=== PATIENT | male | born 1945 | race Caucasian/White ===

== ENCOUNTER 2018-07-23 15:20 | Day surgery (SDC) | payer MEDICARE ==
[~2018-07-23 15:20] MED LIST: AMOCLA875 PO; ATEN25 PO; Aspir 8181 MG PO; FISH1000 PO; FOLGARD TABLET1 EACH PO; GLUC500 PO; INSUASPI SC; INSULANPEN SC; LOSA25 PO; LOSA50 PO; METF500 PO; MULVITMIND PO; SIMV40 PO; Zofran Odt4 MG SL
--- NOTE | 2018-07-23 16:19 | NUR ---
07/23/18 1619 Giorgio Benavidez History, Chart, Medications and Allergies reviewed before start of procedure.MONITOR INTACT WITH CONTINUOUS PULSE OXIMETRY AND INTERMITTENT BP.3-LEAD EKG REVIEWED WITH PHYSICIAN PRIOR TO START OF PROCEDURE.O2 VIA N/C INTACT THROUGHOUT SEDATION/PROCEDURE. Patient confirms NPO status and agrees with scheduled surgery.See Anesthesia record.
--- NOTE | 2018-07-23 17:56 | NUR ---
1745- UP TO DRESS. GAIT STEADY. DENIES DIZZINESS. DENIES C/O. BREATHING RA. VSS. Discharge instructions reviewed with patient. Patient verbalizes understanding. Copy given to patient to take home.
== END 2018-07-23 22:33 | disposition home or self-care (01) ==
LOC: ORSCMMR 15:20
PROVIDERS: Internal Medicine Gastroenterology
PROC: 0DBK8ZX Excision of Ascending Colon, Via Natural or Artificial Opening Endoscopic, Diagnostic (ICD-10-PCS; principal; 2018-07-23 15:30)
PROC: 0DBM8ZX Excision of Descending Colon, Via Natural or Artificial Opening Endoscopic, Diagnostic (ICD-10-PCS; principal; 2018-07-23 15:30)
DX: Z12.11 Encounter for screening for malignant neoplasm of colon (principal); D12.2 Benign neoplasm of ascending colon; D12.4 Benign neoplasm of descending colon; K57.30 Diverticulosis of large intestine without perforation or abscess without bleeding; E11.9 Type 2 diabetes mellitus without complications; I10 Essential (primary) hypertension; G47.33 Obstructive sleep apnea (adult) (pediatric); C91.10 Chronic lymphocytic leukemia of B-cell type not having achieved remission; E66.9 Obesity, unspecified; Z68.42 Body mass index [BMI] 45.0-49.9, adult; Z79.4 Long term (current) use of insulin; Z79.899 Other long term (current) drug therapy
CPT/HCPCS: 82947; 88305; J7120

== ENCOUNTER → 2020-10-04 | Outpatient (CLI) | payer MEDICARE | END | disposition home or self-care (01) | LOC: LAB SHORT 12:37 → PLD 12:37 | DX: D22.5 Melanocytic nevi of trunk (principal) | CPT/HCPCS: 88305 ==

== ENCOUNTER → 2021-10-03 | Outpatient (CLI) | payer MEDICARE | END | disposition home or self-care (01) | LOC: PLD 11:59 → LAB SHORT 11:59 | DX: D22.0 Melanocytic nevi of lip (principal); L57.0 Actinic keratosis | CPT/HCPCS: 88305 ==

== ENCOUNTER → 2022-09-25 | Outpatient (CLI) | payer MEDICARE | END | disposition home or self-care (01) | LOC: PLD 11:10 → LAB SHORT 11:10 | DX: D18.01 Hemangioma of skin and subcutaneous tissue (principal) | CPT/HCPCS: 88305 ==

== ENCOUNTER 2022-10-10 14:04 | Day surgery (SDC) | payer MEDICARE ==
[~2022-10-10] VITALS: Ht 182.9 cm; Wt 154.4 kg
[2022-10-10] MEDS ORDERED: INSULANI (14:44)
[2022-10-10] MEDS ORDERED: BUPROPION XL150 M1 PO (14:45)
[2022-10-10] MEDS ORDERED: JARDIANCE25 MG PO (14:45)
--- NOTE | 2022-10-10 14:55 | NUR ---
10/10/22 1455 Edwige Sage IN AT 1438 NICOLE IN AT 1440
== END 2022-10-10 16:15 | disposition home or self-care (01) ==
LOC: ORSCSDS 14:04
PROVIDERS: Ophthalmology
PROC: 08RJ3JZ Replacement of Right Lens with Synthetic Substitute, Percutaneous Approach (ICD-10-PCS; principal; 2022-10-10 15:30)
DX: E11.36 Type 2 diabetes mellitus with diabetic cataract (principal); H25.11 Age-related nuclear cataract, right eye; Z79.4 Long term (current) use of insulin; Z79.84 Long term (current) use of oral hypoglycemic drugs; H52.201 Unspecified astigmatism, right eye; E78.5 Hyperlipidemia, unspecified; G47.33 Obstructive sleep apnea (adult) (pediatric); J45.909 Unspecified asthma, uncomplicated; E66.01 Morbid (severe) obesity due to excess calories; Z68.42 Body mass index [BMI] 45.0-49.9, adult; Z79.899 Other long term (current) drug therapy
CPT/HCPCS: 82947; J2001; J2250; J3010; J3301; J7040; V2632

== ENCOUNTER 2022-10-17 13:34 | Day surgery (SDC) | payer MEDICARE ==
[~2022-10-17] VITALS: Ht 182.9 cm; Wt 152.9 kg
[~2022-10-17 13:34] MED LIST changes: +BUPROPION XL150 M1 PO; +INSULANI; +JARDIANCE25 MG PO
[2022-10-17] MEDS ORDERED: Naltrexone HCl50 MG PO (14:15)
--- NOTE | 2022-10-17 14:20 | NUR ---
10/17/22 1420 Federico Callahan CALL LIGHT WITHIN REACH. TETRACAINE IN AT 1414 AND PLEDGETT IN AT 1415 IN THE LEFT EYE
== END 2022-10-17 15:47 | disposition home or self-care (01) ==
LOC: ORSCSDS 13:34
PROVIDERS: Ophthalmology
PROC: 08RK3JZ Replacement of Left Lens with Synthetic Substitute, Percutaneous Approach (ICD-10-PCS; principal; 2022-10-17 15:00)
DX: H25.12 Age-related nuclear cataract, left eye (principal); H52.4 Presbyopia; I10 Essential (primary) hypertension; G47.33 Obstructive sleep apnea (adult) (pediatric); E11.9 Type 2 diabetes mellitus without complications; Z79.84 Long term (current) use of oral hypoglycemic drugs; Z79.899 Other long term (current) drug therapy; E66.01 Morbid (severe) obesity due to excess calories; Z68.42 Body mass index [BMI] 45.0-49.9, adult
CPT/HCPCS: 82947; J2001; J2250; J3010; J3300; J7040; V2632

== ENCOUNTER 2023-08-27 11:17 | Inpatient (IN) | payer OTHER, MEDICARE, MEDICAID ==
[~2023-08-27] VITALS: Ht 182.9 cm; Wt 143.1 kg
[~2023-08-27 11:17] MED LIST changes: -INSULANI; +INSULANI SC; +Naltrexone HCl50 MG PO
[2023-08-27 12:03] LABS: Bicarbonate Venous 30.7 mmol/L (24.0-30.0); pH Blood Venous 7.39 (7.34-7.37)
[2023-08-27 12:04] LABS: BASOPHILS ABSOLUTE AUTO 0.04 K/mm3 (0.00-0.23); BASOPHILS PERCENT AUTO 0 % (0-2); EOSINOPHILS ABSOLUTE AUTO 0.14 K/mm3 (0.00-0.68); EOSINOPHILS PERCENT AUTO 1 % (0-6); Hematocrit 46.4 % (37.0-53.0); Hemoglobin 14.4 g/dL (13.5-17.5); IMMATURE GRAN ABSOLUTE AUTO 0.08 K/mm3 (0.00-0.10); IMMATURE GRAN PERCENT AUTO 1 % (0-1); LYMPHOCYTES ABSOLUTE AUTO 1.11 K/mm3 (0.84-5.20); LYMPHOCYTES PERCENT AUTO 11 % (21-46); MONOCYTES ABSOLUTE AUTO 0.99 K/mm3 (0.16-1.47); MONOCYTES PERCENT AUTO 10 % (4-13); Mean Corpuscular Volume 90 fL (80-100); NEUTROPHILS ABSOLUTE AUTO 8.07 K/mm3 (1.96-9.15); NEUTROPHILS PERCENT AUTO 77 % (41-73); Platelet Count 98 K/mm3 (150-400); RDW Coefficient Variation 16.6 % (11.7-14.2); RDW Standard Deviation 54.3 fL (35.1-46.3); Red Blood Cell Count 5.15 M/mm3 (4.30-5.90); White Blood Cell Count 10.43 K/mm3 (4.00-11.30)
[2023-08-27 12:06] LABS: International Normalized Ratio 1.11; Prothrombin Time Results 11.6 Sec (9.7-11.5)
[2023-08-27 12:16] LABS: Albumin/Globulin Ratio 0.9 (0.8-1.8); Bilirubin, Direct 0.1 mg/dL (0.0-0.3); Bilirubin, Indirect 0.6 mg/dL (0.1-0.7); Bilirubin, Total 0.7 mg/dL (0.1-1.0); Bun/Creatinine Ratio 30.6 (12.0-20.0); Calcium, Blood 9.1 mg/dL (8.5-10.1); Creatinine, Blood 0.69 mg/dL (0.60-1.20); Globulin, Blood 3.4 g/dL (2.2-4.0); Magnesium, Blood 1.8 mg/dL (1.6-2.4); Phosphorus, Blood 2.9 mg/dL (2.5-4.9); Potassium, Blood 4.7 mmol/L (3.5-5.5); Total Protein, Blood 6.4 g/dL (6.4-8.2)
[2023-08-27] MEDS ORDERED: Furosemide 10 MG/ML 4ML Vial IV ONE (12:40)
[2023-08-27] MEDS ORDERED: Metoprolol Tartrate 1 MG/ML 5 ML VIAL IV ONE (13:05)
[2023-08-27] MEDS ORDERED: Acetaminophen 325 MG TABLET PO PRN (13:50)
[2023-08-27] MEDS ORDERED: FLU VACC QS2023-24(6MOS UP)/PF 60 MCG/0.5 ML SYRINGE IM SCH (13:55)
[2023-08-27] MEDS ORDERED: Metoprolol Tartrate 1 MG/ML 5 ML VIAL IV PRN (13:55)
[2023-08-27 13:59] LABS: Influenza A, PCR NEGATIVE (NEGATIVE); Influenza B, PCR NEGATIVE (NEGATIVE); Resp Syncytial Virus, PCR NEGATIVE (NEGATIVE); SARS-Cov-2 (COVID-19) PCR, MMC NEGATIVE (NEGATIVE)
[2023-08-27] MEDS ORDERED: Enoxaparin 40 MG/0.4 ML SYR SC SCH (15:00)
[2023-08-27 16:11] LABS: Automated BF RBC Count 0.049 M/mm3 (0-0); Automated BF WBC Count 0.446 K/mm3 (0-999)
[2023-08-27 16:24] VITALS: BP 152/67
[2023-08-27 16:26] LABS: Body Fluid WBC Count 446 /mm3 (0-999); RBC Count, Body Fluid 49000 /mm3 (0-0)
[2023-08-27] MEDS ORDERED: Insulin Regular 100 UNIT/ML 10ML Vial SC SCH (16:30)
[2023-08-27 16:34] LABS: Albumin, Body Fluid 1.7 g/dL; Glucose, Body Fluid 303 mg/dL; Lactate Dehydrogenase, Body Fl 167 U/L; Protein, Body Fluid 2.5 g/dL
[2023-08-27 17:23] LABS: Total Cell Count, Body Fluid 100
[2023-08-27 17:26] LABS: Appearance, Body Fluid Cloudy (Clear); Color, Body Fluid Red (None-Yellow)
--- NOTE | 2023-08-27 17:55 | NUR ---
SHIFT SUMMARY PT ALERT AND ORIENTED. BP STABLE. HR AFIB 120'S. O2 SATS HAVE BEEN ABOVE 90% ON 4L NC. PT DENIES ANY PAIN. PT ABLE TO TOLERATE WALKING TO THE BATHROOM WITH SBA. PT DID REPORT SOB WITH AMBULATING. PT DOES NOT TOLERATE LAYING FLAT. PT SITTING UP EATING DINNER IN BED. WILL CONTINUE TO MONITOR AND REPORT TO ONCOMING RN
[2023-08-27] MEDS ORDERED: Furosemide 10 MG/ML 4ML Vial IV SCH (18:00)
[2023-08-27 19:25] VITALS: BP 128/91
--- NOTE | 2023-08-27 20:55 | NUR ---
ASSUMPTION OF CARE: AFTER RECEIVING REPORT FROM BRANDON HAINES, THIS RN ASSUMED CARE AT APPROX 1915. DURING INITIAL ENCOUNTER, PATIENT ALERT, SITTING UP IN CHAIR WATCHING TV. IS ALERT AND ORIENTED X4. RECEPTIVE TO EDUCATION, ABLE TO COMMUNICATE NEEDS EFFECTIVELY. IS LUMBEE. TELEMETRY SHOWING SINUS TACH WITH PVCs AT 120. PER HUMAN SERVICE TECHNICIAN, PATIENT CONVERTED FROM AFIB TO SINUS TACH AT APPROX 1800. PO METOPROLOL ADMINISTERED PER EMAR. DENIES CHEST PAIN, PRESSURE. BP STABLE. IS ON 3L VIA NASAL CANNULA, SATs >90%. REPORTS MILD DYSPNEA WITH MOBILITY, EASES WITH REST. RESPIRATIONS EVEN, UNLABORED WHILE SITTING IN CHAIR. S/P THORACENTESIS PRIOR TO ARRIVAL TO UNIT. SITE LOCATED ON L SIDE, IS WN. BANDAID DRESSING IN PLACE. RT AT BEDSIDE THIS EVENING TO DISCUSS USE OF CPAP WHILE SLEEPING, PATIENT USES DEVICE AT BASELINE. RT TO SET UP DEVICE FOR PATIENT USE. PATIENT UP TO RESTROOM TO VOID FREQUENTLY. IS INDEPENDENT, DOES CALL APPROPRIATELY NEEDED FOR ASSISTANCE. CALL LIGHT IN REACH.
[2023-08-27] MEDS ORDERED: Metoprolol Tartrate 50 MG Tab PO SCH (21:00)
--- NOTE | 2023-08-27 22:24 | NUR ---
NURSE NOTIFY IN PLACE TO NOTIFY MD SARAH OF HOME DOSE OF LANTUS. THIS RN UNCLEAR IF DAY RN NOTIFIED MD SARAH OF DOSE WHILE COMPLETING MEDICATION RECORD. THIS RN NOTIFIED MD JUNIOR OF COMPLETE MEDICATION RECORD, INCLUDING DOSE OF LANTUS. THIS RN ALSO NOTIFIED MD OF RHYTHM CHANGE AT APPROX 1800 (SEE ASSUMPTION OF CARE NOTE). PATIENT SUSTAINING SINUS TACH 120s-130s WITH PVCs. MD AWARE OF INCREASED RATE. NO NEW ORDERS RECEIVED AT THIS TIME.
[2023-08-27 23:11] VITALS: BP 108/56
[2023-08-28] VITALS (8 sets, daily range): BP systolic 100–123; BP diastolic 55–90
[2023-08-28 04:05] LABS: BASOPHILS ABSOLUTE AUTO 0.04 K/mm3 (0.00-0.23); BASOPHILS PERCENT AUTO 0 % (0-2); EOSINOPHILS ABSOLUTE AUTO 0.22 K/mm3 (0.00-0.68); EOSINOPHILS PERCENT AUTO 2 % (0-6); Hematocrit 45.3 % (37.0-53.0); IMMATURE GRAN ABSOLUTE AUTO 0.05 K/mm3 (0.00-0.10); IMMATURE GRAN PERCENT AUTO 1 % (0-1); LYMPHOCYTES ABSOLUTE AUTO 1.29 K/mm3 (0.84-5.20); LYMPHOCYTES PERCENT AUTO 12 % (21-46); MONOCYTES ABSOLUTE AUTO 1.12 K/mm3 (0.16-1.47); MONOCYTES PERCENT AUTO 11 % (4-13); Mean Corpuscular HGB 27.7 pg (26.0-34.0); Mean Corpuscular HGB Conc 30.9 g/dL (31.5-36.5); Mean Corpuscular Volume 90 fL (80-100); NEUTROPHILS ABSOLUTE AUTO 7.93 K/mm3 (1.96-9.15); NEUTROPHILS PERCENT AUTO 74 % (41-73); Platelet Count 99 K/mm3 (150-400); RDW Coefficient Variation 16.7 % (11.7-14.2); RDW Standard Deviation 54.8 fL (35.1-46.3); Red Blood Cell Count 5.05 M/mm3 (4.30-5.90); White Blood Cell Count 10.65 K/mm3 (4.00-11.30)
[2023-08-28 04:37] LABS: Bun/Creatinine Ratio 29.9 (12.0-20.0); Calcium, Blood 8.7 mg/dL (8.5-10.1); Creatinine, Blood 0.67 mg/dL (0.60-1.20); Potassium, Blood 3.6 mmol/L (3.5-5.5); Total Protein, Blood 5.8 g/dL (6.4-8.2)
[2023-08-28 04:39] LABS: Mean Platelet Volume 13.5 fL (9.1-12.4)
--- NOTE | 2023-08-28 04:43 | NUR ---
SHIFT SUMMARY: NO ACUTE CHANGES SINCE ASSUMPTION OF CARE NOTE. TELEMETRY SHOWING SINUS TACH WITH PVCs, RATE 110s-120s. RATE INCREASE TO 130s WITH ACTIVITY. BP STABLE, SBP 100s-120s. MAP >65. IS ON 4L VIA NASAL CANNULA WHILE AWAKE, SATs >90%. EXPERIENCES EPISODES OF INCREASED SHORTNESS OF BREATH, ESPECIALLY WITH ACTIVITY OR LYING FLAT. CPAP USE WHILE SLEEPING. IS A STAND BY ASSIST TO RESTROOM FOR CORD, DEVICE MANAGEMENT. VOIDING. NO BM THIS SHIFT. CALL LIGHT IN REACH. WILL REPORT TO ONCOMING RN.
--- NOTE | 2023-08-28 08:10 | NUR ---
AM NOTE Pt alert, orineted x4; calm and cooperative with care; able to make needs known. Pt denies pain, chest pain/pressure, nasuea, dizziness and numb/tingling. Spo2 >90% on 4l o2 via nc; ls coarse, dim to bases; titrated down to 3l o2. Tele per telecom billing analyst not sinus/sinus tach; continues as afib; ekg preformed; MD reviewed. Abd distended, firm, +bt t/o. Edema noted to ble 4+, bue 2+ and abd non pitting. Other vss. No other acute changes noted. Will continue to monitor.
[2023-08-28] MEDS ORDERED: Empagliflozin 25 MG TAB PO SCH (09:00)
[2023-08-28] MEDS ORDERED: Naltrexone HCl 50 MG Tab PO SCH (09:00)
[2023-08-28] MEDS ORDERED: Atorvastatin 10 MG Tab PO SCH (09:00)
[2023-08-28] MEDS ORDERED: Potassium Chloride 20 MEQ TabCR PO SCH (09:00)
[2023-08-28] MEDS ORDERED: buPROPion HCL 150 MG TAB.SR.12H PO SCH (09:00)
[2023-08-28] MEDS ORDERED: Miconazole Nitrate 2% 85 GM PWD TOP SCH (09:00)
[2023-08-28] MEDS ORDERED: Losartan Potassium 50 MG Tab PO SCH (09:00)
[2023-08-28] MEDS ORDERED: BRUKINSA80 MG PO (11:43)
[2023-08-28] MEDS ORDERED: SYNTHROID25 M12 PO (11:44)
[2023-08-28] MEDS ORDERED: OZEMPIC0.25 MG/02 SC (11:45)
[2023-08-28] MEDS ORDERED: Azithromycin 500 MG in NS 250 ML IV SCH (12:00)
[2023-08-28] MEDS ORDERED: CefTRIAXone Sodium 1,000 MG in NS 50 ML IV SCH (12:00)
[2023-08-28] MEDS ORDERED: Heparin Sodium,Porcine/0.5 NS 500 ML IV SCH (14:05)
--- NOTE | 2023-08-28 16:46 | NUR ---
Shift Summary Tele: Aflutter per Airline Station Agent 120-130's notified this am after first dose of iv metoprolol did not effect hr; orders to continue to monitor. Discussed plans with MD this evening, plans to give 2nd dose of iv metoprolol at 6 hr odessa. Spo2 >90% on 3l o2 via nc, sob with ambulation, educated pt on wearing o2 while ambulating. Chair alarm in place, pt forgetful at times, sba to bathroom. Other vss. No other acute changes noted. Will continue to monitor.
[2023-08-28] MEDS ORDERED: Loperamide HCl 2 MG Cap PO PRN ×2 (20:45→21:15)
[2023-08-28] MEDS ORDERED: Lactobacil 2-S.Thermo-Bifido 1 1 Cap PO SCH (21:00)
[2023-08-28] MEDS ORDERED: Insulin Glargine-Yfgn 100 Unit/mL 3 ML SYR SC SCH (21:00)
[2023-08-28] MEDS ORDERED: Dose Adjust by Pharmacy XX STA (23:53)
[2023-08-29] VITALS (40 sets, daily range): BP systolic 90–154; BP diastolic 62–97
[2023-08-29 05:05] LABS: Hematocrit 44.9 % (37.0-53.0); Hemoglobin 13.8 g/dL (13.5-17.5); Mean Corpuscular HGB 27.7 pg (26.0-34.0); Mean Corpuscular HGB Conc 30.7 g/dL (31.5-36.5); Mean Corpuscular Volume 90 fL (80-100); Platelet Count 107 K/mm3 (150-400); RDW Coefficient Variation 16.5 % (11.7-14.2); RDW Standard Deviation 54.7 fL (35.1-46.3); Red Blood Cell Count 4.99 M/mm3 (4.30-5.90); White Blood Cell Count 10.48 K/mm3 (4.00-11.30)
[2023-08-29] MEDS ORDERED: Levothyroxine Sodium 0.025 MG Tab PO SCH (06:00)
[2023-08-29 06:18] LABS: BAND PERCENT MAN 2 % (0-8); BASOPHILS PERCENT MAN 0 % (0-2); EOSINOPHILS ABSOLUTE MAN 0.31 K/mm3 (0.00-0.68); EOSINOPHILS PERCENT MAN 3 % (0-6); LYMPHOCYTES % ATYPICAL MANUAL 1 % (0-0); LYMPHOCYTES ABSOLUTE MAN 1.88 K/mm3 (0.84-5.20); LYMPHOCYTES PERCENT MAN 17 % (21-46); METAMYELOCYTE PERCENT MAN 1 % (0-0); MONOCYTES ABSOLUTE MAN 1.25 K/mm3 (0.16-1.47); MONOCYTES PERCENT MAN 12 % (4-13); NEUTROPHILS ABSOLUTE MAN 6.91 K/mm3 (1.96-9.15); SEG NEUTROPHILS PERCENT MAN 64 % (41-73); TOTAL CELLS COUNTED 100
--- NOTE | 2023-08-29 06:18 | NUR ---
SHIFT SUMMARY PATIENT ALERT AND ORIENTED X4. STAND BY ASSIST FOR LINE MANAGEMENT. PATIENT WAS HAVING FREQUENT LOOSE STOOLS AT THE BEGINNING OF SHIFT, CONTACTED DR MARTINES TO NOTIFY HIM AND ASK IF THE PATIENT COULD HAVE IMMODIUM, DR MARTINES APPROVED OF THE ORDER. PATIENT CONTINUES ON 3 LITERS O2 VIA NC, DENIES SHORTNESS OF BREATH. VITAL SIGNS STABLE, HEART RATE CONTINUES IN THE 120'S. WILL CONTINUE TO MONITOR. CALL LIGHT WITHIN REACH.
[2023-08-29 06:53] LABS: Bun/Creatinine Ratio 22.4 (12.0-20.0); Calcium, Blood 8.5 mg/dL (8.5-10.1); Creatinine, Blood 0.67 mg/dL (0.60-1.20); Potassium, Blood 3.2 mmol/L (3.5-5.5)
[2023-08-29] MEDS ORDERED: Dose Adjust by Pharmacy XX STA (08:49)
[2023-08-29] MEDS ORDERED: Metoprolol Succinate 50 MG TABCR PO SCH (09:15)
--- NOTE | 2023-08-29 09:59 | NUR ---
AM NOTE: PATIENT ALERT AND ORIENTED X3-4. SLIGHTLY FORGETFUL AND UNABLE TO TELL ME DETAILS ABOUT HEALTH HISTORY OR HOME MEDICATIONS. SLIGHTLY HARD OF HEARING. ABLE TO MOVE ALL EXTREMITIES WNL. UP WITH SBA TO BATHROOM. DENIES OVERALL PAIN. PERRLA. TELE SHOWING AFLUTTER WITH HR 110-130'S. SBP 120'S. DENIES CHEST PAIN/PRESSURE/PALPITATIONS. ECHO COMPLETED THIS AM. DR. MELENDREZ AT BEDSIDE TO CONSULT PATIENT. POSSIBLE JEAN/CARDIOVERSION THIS AFTERNOON. ANESTHESIA CALLED BY PCU LAYOUT FORMER. 4+ EDEMA NOTED IN BLE WELL 3+ BUE. HEPARIN GTT INFUSING PER EMAR. ON 3L NASAL CANNULA SATING ABOVE 95%. LUNGS SOUNDING CLEAR AND DIM. PATIENT DENIES SOB AT REST IN RECLINER. VERY MILD SOB NOTED WHEN LAYING ON LEFT SIDE FOR ECHO. DENIES COUGH. CPAP ON STANDBY AT BEDSIDE. DENIES ABDOMINAL PAIN/NAUSEA. NPO. PATIENT COMPLAINS OF DIARRHEA OVERNIGHT, RELIEVED BY PO IMODIUM. PATIENT DENIES SEEING ANY BLOOD OR BLACK TARRY STOOLS WITHIN DIARRHEA. BOWEL TONES PRESENT IN ALL QUADRANTS. DENIES PAIN WITH ABDOMINAL PALPATION. RED/YEASTY SKIN NOTED IN ABDOMINAL FOLDS, CLEANED AND POWDER APPLIED. USING HAT TO MEASURE URINE. RED SPOTS NOTED TO BLE, PATIENT REPORTS THIS IS FROM ABX RASH. PURPLE TINGE NOTED TO BILATERAL HANDS AND FEET, PATIENT STATES THIS IS HIS NORMAL. PATIENT SITTING IN RECLINER AT THIS TIME WITH CHAIR ALARM, DENIES NEEDS. CALL LIGHT IN REACH.
--- NOTE | 2023-08-29 10:42 | NUR ---
PATIENT TO HEART CENTER AT THIS TIME.
[2023-08-29] MEDS ORDERED: NS 1,000 ML IV ONE (10:51)
[2023-08-29] MEDS ORDERED: propofoL 20 ML IV ONE (11:01)
[2023-08-29] MEDS ORDERED: Benzocaine Oral Spray 0.5ML UD ONE (11:06)
[2023-08-29] MEDS ORDERED: Midazolam HCl 1MG / ML 2ML Vial ONE (11:28)
[2023-08-29] MEDS ORDERED: Ketamine HCl 100 MG / ML 5ML Vial ONE (11:28)
[2023-08-29] MEDS ORDERED: Amiodarone HCl 50 MG / ML 3 ML Amp ONE (11:54)
--- NOTE | 2023-08-29 12:45 | NUR ---
PT DROWSY, BUT CONVERSING APPROPRIATELY; DENIES PAIN POST PROCEDURE. PT'S RHYTHM AIFB WITH RVR 140-150'S-DOES CONVERT TO SR WITH ECTOPY AT TIMES, VSS.
--- NOTE | 2023-08-29 13:20 | NUR ---
REPORT CALLED TO ZAKI NAYAK; ALL QUESTIONS ANSWERED. PT RETURNED TO ROOM VIA STRETCHER, CONDITION STABLE.
--- NOTE | 2023-08-29 14:04 | NUR ---
PATIENT RETURNS TO PCU 19 POST JEAN/CARDIOVERSION AT [facility]. POWERGLIDE PLACED AND AMIO GTT STARTED PER EMAR ORDERS. HEPARIN GTT CONTINUES TO INFUSE PER EMAR. PATIENT VERY SLEEPY, USED SLIDE SHEET TO TRANSFER. ABX STARTED. TELE SHOWING SR WITH PVC'S AND BBB, PATIENT BRIEFLY CONVERTED TO AFLUTTER IN THE 150'S AND THEN BACK INTO SR AT THIS TIME. SBP 100-110'S. HR 80'S IN SR. SATING MID 90'S ON 4L 02 NASAL CANNULA. PATIENT ABLE TO TAKE A FEW SIPS OF WATER SAFELY. WILL ADVANCE DIET ONCE MORE AWAKE AND ALERT. POST VITAL SIGNS IN PROGRESS. BED ALARM IN PLACE AND CALL LIGHT IN REACH.
--- NOTE | 2023-08-29 15:21 | NUR ---
THIS RN AT LUNCH. PATIENT HAD MULTIPLE RUNS OF SVT WITH POLYMORPHIC PVC'S MARK RN SPOKE WITH DR. MELENDREZ AND UPDATED ON TELEMETRY, PATIENT VITALS AND PATIENT SYMPTOMS. NO NEW ORDERS FOR MARK RN TO PLACE. PATIENT SYMPTOMATIC WITH SHORT RUNS OF SVT, CHEST PALPITATIONS, RACING HEART AND NAUSEA. PATIENT BP 100-110'S. HR 90'S. SEE SAVED STRIPS IN CHART FROM XIFIN. PATIENT SITTING IN RECLINER, STATES HE DOES NOT FEEL LIKE EATING AT THIS TIME. CALL LIGHT IN REACH. HEPARIN AND AMIO CONTINUE TO INFUSE PER EMAR. PATIENT REMAINS ON 4L O2 NASAL CANNULA.
--- NOTE | 2023-08-29 18:22 | NUR ---
SHIFT SUMMARY: DR. MELENDREZ BY TO ASSESS PATIENT. NO NEW ORDERS FOR THIS RN TO PLACE. PATIENT IN SR AT THIS TIME WITH PVC'S. HR 80-90'S. SBP 110'S. DENIES CHEST PAIN/PRESSURE/PALPITATIONS. PATIENT HAVING SHORT EPISODE OF AFIB WITH HR 150'S. AMIO GTT AND HEPARIN GTT CONTINUE TO INFUSE. PATIENT HAD X2 LOOSE BOWEL MOVEMENT THIS EVENING. PO IMODIUM GIVEN PER EMAR. STRICT I/O. PLAN FOR 08/30 0500 EKG. CALL LIGHT IN REACH. CHAIR ALARM IN PLACE. REMAINS ON 4L O2 NASAL CANNULA. CPAP ON STANDBY AT BEDSIDE.
[2023-08-29] MEDS ORDERED: Insulin Glargine-Yfgn 100 Unit/mL 3 ML SYR SC ONE (21:45)
[2023-08-30] VITALS (9 sets, daily range): BP systolic 94–121; BP diastolic 58–84
[2023-08-30 05:16] LABS: Hematocrit 42.6 % (37.0-53.0); Hemoglobin 13.4 g/dL (13.5-17.5); Mean Corpuscular HGB Conc 31.5 g/dL (31.5-36.5); Mean Corpuscular Volume 89 fL (80-100); Platelet Count 97 K/mm3 (150-400); RDW Coefficient Variation 16.7 % (11.7-14.2); RDW Standard Deviation 54.8 fL (35.1-46.3); Red Blood Cell Count 4.79 M/mm3 (4.30-5.90)
[2023-08-30] MEDS ORDERED: Dose Adjust by Pharmacy XX STA (05:29)
[2023-08-30 05:36] LABS: Bun/Creatinine Ratio 18.9 (12.0-20.0); Calcium, Blood 8.3 mg/dL (8.5-10.1); Creatinine, Blood 1.06 mg/dL (0.60-1.20); Potassium, Blood 3.7 mmol/L (3.5-5.5)
[2023-08-30 05:42] LABS: BASOPHILS ABSOLUTE AUTO 0.05 K/mm3 (0.00-0.23); BASOPHILS PERCENT AUTO 0 % (0-2); EOSINOPHILS PERCENT AUTO 1 % (0-6); IMMATURE GRAN ABSOLUTE AUTO 0.05 K/mm3 (0.00-0.10); IMMATURE GRAN PERCENT AUTO 0 % (0-1); LYMPHOCYTES ABSOLUTE AUTO 2.68 K/mm3 (0.84-5.20); LYMPHOCYTES PERCENT AUTO 24 % (21-46); MONOCYTES ABSOLUTE AUTO 1.09 K/mm3 (0.16-1.47); MONOCYTES PERCENT AUTO 10 % (4-13); NEUTROPHILS ABSOLUTE AUTO 7.24 K/mm3 (1.96-9.15); NEUTROPHILS PERCENT AUTO 65 % (41-73)
[2023-08-30 06:14] LABS: White Blood Cell Count 11.21 K/mm3 (4.00-11.30)
--- NOTE | 2023-08-30 06:30 | NUR ---
SHIFT SUMMARY PATIENT ALERT AND ORIENTED X4, STAND BY ASSIST TO THE RESTROOM FOR LINE MANAGEMENT. PATIENT IS ON 3-4 LITERS O2 VIA NASAL CANULA. PATIENT'S HS BLOOD SUGAR WAS 148 AND THE PATIENT'S BLOOD SUGAR DROPPED FROM 170'S THE NIGHT BEFORE TO 80 THE NEXT MORNING, AND THE PATIENT REPORTED HAVING A DECREASED APPETITE LATELY, THIS RN NOTIFIED DR MARTINES OF THE BLOOD SUGAR AND ASKED IF THE PATIENT SHOULD STILL RECEIVE A 50 UNIT DOSE OF [address] MARTINES SAID NOT TO GIVE 50 UNITS OF GLARGINE BUT TO GIVE 15 UNITS INSTEAD. BLOOD PRESSURE HAS BEEN STABLE, CONTINUES ON AMIODARONE AND HEPARIN DRIP. PATIENT'S HEART RATE HAS BEEN IN THE 80'S, PEAKING TO THE 140'S AT TIMES. WILL CONTINUE TO MONITOR. CALL LIGHT WITHIN REACH.
[2023-08-30] MEDS ORDERED: Spironolactone 25 MG Tab PO SCH (08:00)
[2023-08-30] MEDS ORDERED: Amiodarone HCl 200 MG Tab PO SCH ×2 (09:00→13:00)
[2023-08-30] MEDS ORDERED: Sacubitril/Valsartan 24 MG-26 MG Tab PO SCH (09:00)
[2023-08-30] MEDS ORDERED: Insulin Glargine-Yfgn 100 Unit/mL 3 ML SYR SC SCH (09:00)
--- NOTE | 2023-08-30 09:47 | NUR ---
AM NOTE: PATIENT ALERT AND ORIENTED X4. PERRLA. DENIES NUMBNESS/TINGLING. PATIENT STATES HE FEELS WEAK BUT OVERALL FEELING BETTER FROM WHEN HE FIRST GOT TO HOSPITAL. UP WITH SBA TO HELP MANAGE LINES AND CORDS. CHAIR AND BED ALARM IN USE. TELE SHOWING SR/ST WITH PVC'S 70-100'S WELL PATIENT HAVING INTERMIT EPISODES OF AFIB WITH HR 130-150'S. PATIENT NONSYMPTOMATIC THIS MORNING WITH AFIB EPISODE. SBP 110'S. PPP. 4+ EDEMA NOTED TO BLE. IV LASIX GIVEN. STRICT I/O. HEPARIN AND AMIO GTTS INFUSING PER EMAR. PATIENT DENIES CHEST PAIN/PRESSURE/PALPITATIONS. PPP. ON 4L O2 NASAL CANNULA THIS AM SATING ABOVE 90%. EVEN AND UNLABORED RESPIRATIONS AT REST. SOB WITH EXCERTION WHEN UP TO BATHROOM. LUNGS SOUNDING CLEAR IN UPPER LOBES AND DIM IN BASES. DENIES COUGH. BOWEL TONES PRESENT. PATIENT USING URINAL TO VOID. DENIES HAVING ANY LOOSE BOWEL MOVEMENTS DURING NOC SHIFT. PATIENT REPORTS HAVING POOR APPEATITE AND NOT EATING MUCH. DRINKING WATER AND EATING A SMALL AMOUNT OF OATMEAL THIS MORNING. ACHS BLOOD SUGAR CHECKS. NO SWALLOWING ISSUES NOTED. RED/YEAST NOTED IN ABDOMINAL/PANUS FOLDS. CLEANED WITH WASHCLOTH AND NEW POWDER APPLIED. PATIENT SITTING IN RECLINER THIS MORNING. THIS RN REINFORCED EDUCATION REGARDING USING CALL LIGHT TO PREVENT FALLS. THIS RN AT BEDSIDE FOR PROVIDER ROUNDING WITH DR. MELENDREZ. DENIES NEEDS AT THIS TIME. CALL LIGHT IN REACH. PATIENT WATCHING TV IN RECLINER.
[2023-08-30] MEDS ORDERED: Insulin Regular 100 UNIT/ML 10ML Vial SC SCH (11:30)
[2023-08-30 13:33] LABS: PCO2 Arterial 53.4 mmHg (35-45); PO2 Arterial 65.2 mmHg (80-100); pH Blood Arterial 7.39 (7.35-7.45)
[2023-08-30 14:23] LABS: Source, Urine Foley catheter
[2023-08-30 14:31] LABS: Appearance, Urine Hazy (Clear); Bilirubin, Urine Neg (Neg); Blood, Urine 5+ (Neg); Color, Urine Yellow (P-Yellow); Glucose Qualitative, Urine 4+ (Neg); Ketones, Urine Neg (Neg); Leukocyte Esterase, Urine Neg (Neg); Nitrite, Urine Neg (Neg); Protein, Urine 2+ (Neg); Specific Gravity, Urine 1.015 (1.003-1.022); Urobilinogen, Urine NORM (Normal)
[2023-08-30 15:15] LABS: White Blood Cells, Urine 0-2 /hpf (0-5)
[2023-08-30 15:16] LABS: Bacteria Rare /hpf; Squamous Epithelial Cells Rare /hpf (Few)
--- NOTE | 2023-08-30 15:37 | NUR ---
PATIENT UP TO BS, DESATED TO MID 80'S ON 4L O2. RESPIRATORY CALLED AND PATIENT SATS NOT RECOVERING ON REGULAR NASAL CANNULA. PATIENT SWITCHED TO CPAP, PATIENT NOT TOLERATING CPAP AND PULLING OFF FACE. HIGH FLOW NASAL CANNULA STARTED AT 15L AND PATIENT SATING 90-95%. RR 24-26. PATIENT SOB AND INCREASED WORK OF BREATHING. REMAINS IN SR DURING THIS TIME. DR. SMITH CALLED AND ORDERS FOR BIPAP, ABG, 1 VIEW CHEST XRAY, AND DIAZ CATH. ORDERS PLACED AND RESPIRATORY IN TO DRAW ABG. PATIENT MOVED TO BED, DIAZ PLACED. CHEST XRAY COMPLETED. PATIENT TITRATED TO 12L HIGH FLOW SATING 90-95%. DENIES SOB, RR REMAINS 24-26. STABLE BP AND IN SINUS RHYTHM. IMPROVED WORK OF BREATHING. UNABLE TO TOLERATE FACE MASK FROM CPAP OR BIPAP AT THIS TIME. DR. SMITH CALLED, THIS RN DISCUSSED ABG, CHEST XRAY, DIAZ CATH BEING PLACED AND PATIENT NOT TOLERATING CPAP/BIPAP. NO NEW ORDERS FOR THIS RN TO PLACE. PATIENT IN BED AT THIS TIME WITH BED ALARM AND CALL LIGHT. IMPROVED WORK OF BREATHING DENIES SOB. SITTING UPRIGHT, WATCHING TV. ON 12L HIGH FLOW NASAL CANNULA.
--- NOTE | 2023-08-30 18:03 | NUR ---
SHIFT SUMMARY: PATIENT REMAINS ON 12L HIGH FLOW NASAL CANNULA SATING 90-95%. IV LASIX GIVEN THIS EVENING. PATIENT DENIES SOB AT REST. SOB WITH ANY EXCERTION. TELE CONTINUES TO SHOW SR WITH INTERMIT RUNS OF AFIB IN THE 130'S. SBP 110-120'S. DENIES CHEST PAIN/PRESSURE/PALPITATIONS. CONTINUES TO HAVE POOR APPEATITE. STRICT I/O. DIAZ PLACEMENT PER DR. SMITH ORDERS. YELLOW URINE WITH DIAZ PLACEMENT THAT IS NOW BLOOD TINGED, RESEMBLING CRANBERRY JUICE. CARBONATION EQUIPMENT OPERATOR IN TO HAVE 2ND RN CHECK DIAZ CATH/URINE COLORING. PATIENT DENIES PAIN WITH DIAZ. HEPARIN GTT CONTINUES PER EMAR. PO AMIO PER ORDERS. PATIENT IN RECLINER AT THIS TIME EATING DINNER AND WATCHING TV. DENIES NEEDS. CHAIR ALARM IN PLACE.
--- NOTE | 2023-08-30 22:50 | NUR ---
ASSUMPTION OF CARE: PATIENT IS ALERT AND ORIENTED X 4, NO ACUTE CONCERNS. HEPARIN GTT INFUSING INTO RIGHT HAND WITH NO ISSUES. PATIETN WITH RECENT DIAZ, URINE IS WAQAS AT THIS TIME, DAY RN SEEN CHANGE AND PROVIDER AWARE. PATIENT HAD 1 EPISODE OF ASYMPTOMATIC SVT, 8 MINUTES,, PATIENT SELF CONVERTED, TO SR OCC PVC FHB. DAY HOSPITALIST HAS BEEN AWARE OF THESE EPISODES, ALONG WITH CARDIOLOGY, POSSIBLE HISTORY OF. PATIENT HAS NO ACUTE CONCERNS, CHAIR ALARM ON DUE TO LINE MANAGEMENT AND POTETIAL FOR FALLS. PATIENT EDUCATED AND AGREES TO CALL. SBP UNDER 100, HELD MEDCIATIONS DUE TO PARAMETERS, PLEASE SEE MAR.
[2023-08-31] VITALS (66 sets, daily range): BP systolic 73–132; BP diastolic 44–96
[2023-08-31 04:17] LABS: Hematocrit 44.3 % (37.0-53.0); Hemoglobin 14.1 g/dL (13.5-17.5); Mean Corpuscular HGB 27.8 pg (26.0-34.0); Mean Corpuscular HGB Conc 31.8 g/dL (31.5-36.5); Mean Corpuscular Volume 87 fL (80-100); Platelet Count 95 K/mm3 (150-400); RDW Coefficient Variation 16.4 % (11.7-14.2); RDW Standard Deviation 52.3 fL (35.1-46.3); Red Blood Cell Count 5.07 M/mm3 (4.30-5.90); White Blood Cell Count 15.03 K/mm3 (4.00-11.30)
[2023-08-31 04:46] LABS: Calcium, Blood 8.3 mg/dL (8.5-10.1); Creatinine, Blood 1.41 mg/dL (0.60-1.20); Potassium, Blood 3.9 mmol/L (3.5-5.5)
--- NOTE | 2023-08-31 05:15 | NUR ---
EOS/ ACUTE CHANGE. PATIENT HAD GONE BACK INTO A MORE CONTROLLED SVT WHICH WAS CONFIRMED WITH PARAEDUCATOR WHEN SHE WAS AT BEDSIDE. EKG CAPTURED, FOR THE THIRD TIME, HOWEVER, PATIENT SUSTAINED THIS RHYTHM WHICH WAS ASYMPTOMATIC, VSS, MINUS HIS CURRENT INCREASED O2 NEEDS OF 12L WHICH DID NOT CHANGE. FOR APPROXIMATELY 60 MINUTES, IN TOTALEKG OF AFTER CONVERSION WELL, PLEASE SEE EKG. FRANKOENRIQUEN EDUCATED ON THE ACUTE NEED FOR CPAP USE, WAS INFORMED WITH INTIAL CALL TO PARAEDUCATOR IAN SIMONS TO GIVE AMIO EARLY ALONG WITH METOPROLOL AFTER SHE REVIEWED EKG AND ACQUIRED VITALS. THIS RN GAVE MEDICATIONS AND MOVED PATIENT TO BED FOR BETTER ACUTE CARE, VERSUS THE RECLINER. PATIENT ALERT AND ORIENTED X 4 AND CHEST PAIN PRESSURE FREE DURING ENTIRE PROCESS. PATIENT DIAZ STILL DRAINING BLOOD BUT OCCASSIONALLY IS HAVING A LIGHTENING OF YELLOW AT TIMES. PATIENT'S HEPARIN STILL INFUSING AND THERAPUETIC WITH NO CHANGE. PATIENT DID BECOME NAUSEATED WITH CPAP, DID HAVE TO BE REMOVED THIS AM DUE TO ACITVE DRY HEAVING DURING CARDIOLOGY ROUNDING. SEE CONCERNS ABOVE DAY RN AWARE OF CHANGES.
[2023-08-31] MEDS ORDERED: Clarify Drug Order XX ONE (05:25)
[2023-08-31 06:21] LABS: BASOPHILS PERCENT MAN 0 % (0-2); EOSINOPHILS ABSOLUTE MAN 0.15 K/mm3 (0.00-0.68); EOSINOPHILS PERCENT MAN 1 % (0-6); LYMPHOCYTES % ATYPICAL MANUAL 1 % (0-0); LYMPHOCYTES ABSOLUTE MAN 2.85 K/mm3 (0.84-5.20); LYMPHOCYTES PERCENT MAN 18 % (21-46); MONOCYTES PERCENT MAN 22 % (4-13); NEUTROPHILS ABSOLUTE MAN 8.56 K/mm3 (1.96-9.15); OTHER CELL PERCENT MAN 1 % (0-0); SEG NEUTROPHILS PERCENT MAN 57 % (41-73); TOTAL CELLS COUNTED 100
[2023-08-31] MEDS ORDERED: Ondansetron HCl 2 MG / ML 2ML Vial IV ONE (06:45)
[2023-08-31] MEDS ORDERED: Ondansetron HCl 2 MG / ML 2ML Vial ONE (06:45)
[2023-08-31] MEDS ORDERED: Adenosine 3 MG/ML 2 ML Vial ONE ×2 (10:46→10:55)
[2023-08-31] MEDS ORDERED: Midazolam HCl 1MG / ML 2ML Vial ONE (10:59)
[2023-08-31] MEDS ORDERED: Adenosine 3 MG/ML 4ML Vial IV ONE ×2 (11:15)
[2023-08-31] MEDS ORDERED: Midazolam HCl 1MG / ML 2ML Vial IV ONE (11:15)
--- NOTE | 2023-08-31 12:14 | NUR ---
AM UPDATE: 814: PT ALERT AND ORIENTED X4, ABLE TO FOLLOW COMMANDS AND MAKE NEEDS KNOWN. BP STABLE. HR SR 70'S, AFEBRILE, SP02 85-88% ON 12L HIFLOW. PT TITRATED TO 15L HIFLOW, SP02 >90%. MD AND RT NOTIFIED. PT UNABLE TO TOLERATE CPAP AT THIS TIME. 1100: RECEIVED CALL FROM [employer] AT 0950, PT NOW IN SVT RHYTHM RATE 130'S. PT WITH HX OF SVT, ABLE TO SELF CONVERT IN PAST. PT MAINTAINED RATE FOR APPROX 45 MIN. CALL THEN PLACED TO CUSTOMER SUPPORT ASSISTANT FOR UPDATE. BP STABLE AT THIS TIME, PT MAINTING >90% ON 15L HIFLOW. DENIES CP/PRESSURE. CUSTOMER SUPPORT ASSISTANT AT BEDSIDE, ORDERS FOR ADENOSINE. OVERLOCK COLLAR SETTER, , AND THIS RN AT BEDSIDE. 12MG OF ADENOSINE ADMINISTERED, HR REMAINS SVT 130'S, ADDITIONAL 12MG ADENOSINE ORDERED AND ADMINISTERED, PT REMAINED SVT 130'S. CUSTOMER SUPPORT ASSISTANT ORDER FOR SYCHRONIZED CARDIOVERSION @1100. SHOCK DELIVERED, PT CONVERTED TO SR 60'S. PT ALERT AND ORIENTED AT THIS TIME, SP02 83-86% ON 15L HIFLOW. BP TRENDING DOWN, SEE CHARTING. ORDERS RECEIVED ICU XFER FOR LEVOPHED. REPORT GIVEN TO ARIANE Ragsdale RN. PT TRANSFERRED TO ICU 2 @1200. HOSPITALIST NOTIFIED.
--- NOTE | 2023-08-31 12:44 | NUR ---
PT TRANSFERED FROM PCU 19 TO ICU 2 WITH AT 1150, 2 RN'S ACCOMPANY. PT IS ORIENTED TO SELF. THINKS HE IS IN SURGERY PROCEDURE. ASKS "SO ARE WE JUST WAITING FOR ME TO ?" EDUCATED PT ON PLAN OF CARE BUT PT IS NOT RETAINING INFO. HYPOTENSIVE AND HYPOXIC ON ARRIVAL. RT PLACED PT ON AIRVO 60L FIO2 94%. LOW DOSE LEVOPHED STARTED PERIPHERALLY, R HAND IV PATENT AND DRAWS BLOOD EASILY. BLEACHER LARD WILL PLACE PICC LINE WHEN AVAILABLE. HEPARIN GTT RUNNING WELL.
--- NOTE | 2023-08-31 14:08 | NUR ---
Pt. is awake in bed. Pt was recently moved from PCU to ICU where I am visiting him. Pt. is pleasant. Facilitate a life review and consider matters of oli and belief. Pt. verbalized stories of his relocating to [place] 10 years ago. Listen with interest and empathy. Pt. didsplaed evidence of getting visibly tired so si improvement director did not let the visit go long. Prayed with Pt. Pt. verbalized gratitude for the spiritual care visit.
[2023-08-31] MEDS ORDERED: Bumetanide 0.25 MG/ML 10ML Vial IV ONE (15:00)
--- NOTE | 2023-08-31 17:50 | NUR ---
SUMMARY PT TRANSFERED FROM PCU TODAY. HYPOTENSIVE AND HYPOXIC. PLACED ON AIRVO ON ARRIVAL TO ICU AND STARTED ON LEVOPHED. TITRATING LEVOPHED SEE FLOWSHEET. THIS AFTERNOON SPO2 WAS SITTING 84-88% ON MAX SETTINGS, CALLED DR. DIAZ WHO ORDERED BUMEX. ALSO PLACED PT ON BIPAP 18/14 FIO2 100%. AFTER BIPAP SPO2 90% AND ABOVE. PT TAKING A BREAK FROM BIPAP NOW AND HAS BEEN MAKING PHONE CALLS TO NEIGHBORS UPDATING THEM. PT SEEMS TO BE RETAINING INFORMATION BETTER NOW. NO SIGN OF DISTRESS AT THE MOMENT.
--- NOTE | 2023-08-31 22:32 | NUR ---
ASSUMPTION OF CARE/ASSESSMENT: ASSUMED CARE OF PT AT 1900. PT SLEEPING IN BED BUT WAKES TO VERBAL STIMULI. PT ABLE TO ANSWER QUESTIONS APPROPRIATELY AND IS A&O X 4. PT CURRENTLY ON BIPAP WITH SETTINGS 18/, FIO2 100%. BREATH SOUNDS ARE DIMINISHED THROUGHOUT, SPO2 90<. PT SWITCHED OVER TO AIRVO FOR ORAL CARE AND WATER BREAKS; TOELRATING WELL BUT WHEN PT STARTS TO FALL ASLEEP, BIPAP NEEDS TO BE PUT ON AGAIN. SR ON MONITOR WITH HR 60'S, SBP 100-120'S WITH MAP 65<; LEVO INFUSING @ 4 MCG IN RH PIV THAT IS FLUSHING WELL. PT DENIES CHEST PAIN OR SOB AT THIS TIME. HYPERACTIVE BOWEL SOUNDS NOTED; TOLERATING PO INTAKE. BILATERAL LEGS EDEMATOUS. DIAZ IN PLACE AND DRAINING TO GRAVITY; XENIA URINE, OLIGURIA. HEPARIN GTT @ 15 UNITS/KG IN CATIA PG THAT FLUSHES WELL. BED LOWERED, CALL LIGHT IN REACH.
[2023-09-01] VITALS (65 sets, daily range): BP systolic 80–117; BP diastolic 45–86
[2023-09-01 04:32] LABS: Hematocrit 45.3 % (37.0-53.0); Hemoglobin 14.4 g/dL (13.5-17.5); Mean Corpuscular HGB Conc 31.8 g/dL (31.5-36.5); Mean Corpuscular Volume 88 fL (80-100); Platelet Count 102 K/mm3 (150-400); RDW Coefficient Variation 16.3 % (11.7-14.2); Red Blood Cell Count 5.15 M/mm3 (4.30-5.90); White Blood Cell Count 16.36 K/mm3 (4.00-11.30)
[2023-09-01 04:45] LABS: Anion Gap 5 mmol/L (6-16); Blood Urea Nitrogen 40 mg/dL (8-24); Bun/Creatinine Ratio 22.9 (12.0-20.0); CO2, Blood 33 mmol/L (21-32); Calcium, Blood 8.2 mg/dL (8.5-10.1); Chloride, Blood 96 mmol/L (98-108); Creatinine, Blood 1.75 mg/dL (0.60-1.20); Glomerular Filtration Rate 39 (60-); Glucose, Blood 127 mg/dL (70-99); Magnesium, Blood 1.9 mg/dL (1.6-2.4); Phosphorus, Blood 6.8 mg/dL (2.5-4.9); Potassium, Blood 4.1 mmol/L (3.5-5.5); Sodium, Blood 134 mmol/L (136-145)
[2023-09-01] MEDS ORDERED: Clarify Drug Order XX ONE (05:05)
[2023-09-01 05:09] LABS: BAND PERCENT MAN 3 % (0-8); BASOPHILS PERCENT MAN 0 % (0-2); EOSINOPHILS ABSOLUTE MAN 0.32 K/mm3 (0.00-0.68); EOSINOPHILS PERCENT MAN 2 % (0-6); LYMPHOCYTES % ATYPICAL MANUAL 1 % (0-0); LYMPHOCYTES ABSOLUTE MAN 1.63 K/mm3 (0.84-5.20); LYMPHOCYTES PERCENT MAN 9 % (21-46); NEUTROPHILS ABSOLUTE MAN 11.28 K/mm3 (1.96-9.15); SEG NEUTROPHILS PERCENT MAN 66 % (41-73); TOTAL CELLS COUNTED 100
[2023-09-01 05:10] LABS: BLASTS PERCENT MAN 1 % (0-0); MONOCYTES ABSOLUTE MAN 2.94 K/mm3 (0.16-1.47); MONOCYTES PERCENT MAN 18 % (4-13)
--- NOTE | 2023-09-01 05:43 | NUR ---
SHIFT SUMMARY: PT ON BIPAP FOR MAJORITY OF THE NIGHT WITH BREIF BREAKS ON THE AIRVO FOR ORAL CARE AND DRINKS OF WATER. DURING THESE BREAKS PT DESATS QUICKLY AND TAKES LONGER PERIODS TO RECOVER. SPO2 MAINTAINING 88<. PT DENIES SOB AT THIS TIME. PT SR WITH HR 60'S AND SBP 110'S; LEVO ON SB AT THIS TIME. HEPARIN GTT @ 15 UNITS/KG. PT HAD 250 ML URINE OUT THIS SHIFT AND NO BOWEL MOVEMENT.
[2023-09-01] MEDS ORDERED: Bumetanide 0.25 MG/ML 10ML Vial IV ONE (07:35)
[2023-09-01] MEDS ORDERED: Mag Sulfate 1 GM/D5% 100ML 100 ML IV STA (08:22)
[2023-09-01] MEDS ORDERED: Spironolactone 25 MG Tab PO SCH (09:00)
[2023-09-01] MEDS ORDERED: Bumetanide 0.25 MG/ML 4ML ViaL IV SCH ×2 (09:00)
[2023-09-01] MEDS ORDERED: Metoprolol Succinate 25 MG TABCR PO SCH (09:00)
[2023-09-01] MEDS ORDERED: Amiodarone HCl 200 MG Tab PO SCH (09:00)
[2023-09-01] MEDS ORDERED: AcetaZOLAMIDE Sodium 500 MG Vial IV SCH (09:00)
[2023-09-01] MEDS ORDERED: Pantoprazole Sodium 40 MG Injection IV SCH (09:00)
[2023-09-01] MEDS ORDERED: Metolazone 5 MG Tab PO ONE (12:00)
[2023-09-01] MEDS ORDERED: NS 250 ML IV PRN (13:40)
[2023-09-01] MEDS ORDERED: Benzocaine Oral Spray 0.5ML UD MT PRN (15:25)
[2023-09-01 16:27] LABS: Albumin, Blood 2.8 g/dL (3.4-5.0); Anion Gap 4 mmol/L (6-16); Blood Urea Nitrogen 43 mg/dL (8-24); CO2, Blood 34 mmol/L (21-32); Calcium, Blood 7.6 mg/dL (8.5-10.1); Chloride, Blood 93 mmol/L (98-108); Creatinine, Blood 1.72 mg/dL (0.60-1.20); Glomerular Filtration Rate 40 (60-); Glucose, Blood 87 mg/dL (70-99); Phosphorus, Blood 6.5 mg/dL (2.5-4.9); Potassium, Blood 3.9 mmol/L (3.5-5.5); Sodium, Blood 131 mmol/L (136-145)
[2023-09-01] MEDS ORDERED: Calcium Acetate 667 MG Gel Cap PO SCH (18:00)
--- NOTE | 2023-09-01 18:45 | NUR ---
Shift summary. Pt remained in bed this shift. Pt has very high oxygen demand, Bipap Fi02 100%, Airvo settings maxed out. Pt tolerated short breaks from mask on airvo but sats remained in mid 80s during breaks, physician aware. Pulmonology consulted this am. No other acute events this shift. See chart for further details. Will report off to nightshift RN.
[2023-09-01] MEDS ORDERED: Atorvastatin 40 MG Tab PO SCH (21:00)
[2023-09-01] MEDS ORDERED: Phenol/Sodium Phenolate Oral Spray 180 ML MM PRN (23:25)
[2023-09-02] VITALS (41 sets, daily range): BP systolic 85–142; BP diastolic 48–106
[2023-09-02 03:42] LABS: Hematocrit 41.1 % (37.0-53.0); Hemoglobin 13.4 g/dL (13.5-17.5); Mean Corpuscular HGB Conc 32.6 g/dL (31.5-36.5); Mean Corpuscular Volume 86 fL (80-100); Platelet Count 96 K/mm3 (150-400); RDW Coefficient Variation 15.9 % (11.7-14.2); RDW Standard Deviation 49.9 fL (35.1-46.3); Red Blood Cell Count 4.78 M/mm3 (4.30-5.90); White Blood Cell Count 14.44 K/mm3 (4.00-11.30)
[2023-09-02 03:54] LABS: Albumin, Blood 2.7 g/dL (3.4-5.0); Anion Gap 5 mmol/L (6-16); Blood Urea Nitrogen 44 mg/dL (8-24); CO2, Blood 35 mmol/L (21-32); Chloride, Blood 94 mmol/L (98-108); Creatinine, Blood 1.57 mg/dL (0.60-1.20); Glomerular Filtration Rate 45 (60-); Glucose, Blood 82 mg/dL (70-99); Magnesium, Blood 1.8 mg/dL (1.6-2.4); Phosphorus, Blood 5.5 mg/dL (2.5-4.9); Sodium, Blood 134 mmol/L (136-145)
[2023-09-02] MEDS ORDERED: Clarify Drug Order XX ONE (04:30)
[2023-09-02 04:33] LABS: BAND PERCENT MAN 5 % (0-8); BASOPHILS PERCENT MAN 0 % (0-2); EOSINOPHILS ABSOLUTE MAN 0.43 K/mm3 (0.00-0.68); EOSINOPHILS PERCENT MAN 3 % (0-6); LYMPHOCYTES % ATYPICAL MANUAL 1 % (0-0); LYMPHOCYTES ABSOLUTE MAN 2.31 K/mm3 (0.84-5.20); LYMPHOCYTES PERCENT MAN 15 % (21-46); MONOCYTES ABSOLUTE MAN 1.29 K/mm3 (0.16-1.47); MONOCYTES PERCENT MAN 9 % (4-13); NEUTROPHILS ABSOLUTE MAN 10.39 K/mm3 (1.96-9.15); SEG NEUTROPHILS PERCENT MAN 67 % (41-73); TOTAL CELLS COUNTED 100
--- NOTE | 2023-09-02 06:06 | NUR ---
SHIFT SUMMARY: NO ACUTE CHANGES THROUGHOUT THE NIGHT; VSS THROUGHOUT THE SHIFT. PT TOLERATING BIPAP AND SMALL BREAKS WITH AIRVO; MAINTAINING SPO2 92<. SR WITH HR 60'S AND SBP 100'S, MAP 65<; LEVO HAS BEEN OFF FOR ENTIRE SHIFT. PT'S MENTAION AND MOOD IMPROVING AND PT REMAINS A&O X 4 AND IN A GOOD MOOD. PT HAD AROUND 2.5 L URINE OUTPUT THIS SHIFT. BED LOWERED, CALL LIGHT IN REACH.
[2023-09-02] MEDS ORDERED: Bumetanide 0.25 MG/ML 4ML ViaL IV SCH (09:00)
[2023-09-02] MEDS ORDERED: Metolazone 5 MG Tab PO ONE (13:00)
[2023-09-02] MEDS ORDERED: Rivaroxaban 10 MG Tab PO SCH (18:00)
--- NOTE | 2023-09-02 18:38 | NUR ---
Pt improved this shift, 02 demands decreasing, able to tolerate breaks from bipap mask on high flow NC and airvo. Up to recliner for several hours this shift, able to stand and ambulate with standby assist and walker. Heparin discontinued at 1500, xarelto started. No acute events this shift, see chart for further details. Will report off to nightshift RN.
--- NOTE | 2023-09-02 21:20 | NUR ---
ASSUMPTION OF CARE BEDSIDE SHIFT REPORT RECEIVED FROM DAYSHIFT RN. PT RESTING IN BED ALERT AND ORIENTED. PT ANSWERS QUESTIONS APPROPRIATELY, FOLLOWS COMMANDS AND IS ABLE TO MAKE NEEDS KNOWN. PT IS WEAK BUT MOVES ALL EXTREMITIES EQUALLY BILATERALLY. HR 60'S SINUS, MAP >65, PT DENIES CP OR PRESSURE. PT ON AIRVO 45LPM, 58%, OXYGEN SATURATION >92%, PT DENIES SOB, LUNG SOUNDS CLEAR DIMINISHED IN THE BASES. ABDOMEN SOFT AND ROUND, BOWEL TONES ACTIVE IN ALL FOUR QUADRANTS. DIAZ PATENT DRAINING TO GRAVITY. POWERGLIDE TO CATIA SL. BED IN LOWEST POSITION, CALL LIGHT WITHIN REACH, CARE CONTINUES.
--- NOTE | 2023-09-02 22:29 | NUR ---
PT TRANSFER REPORT GIVEN TO WIL HAINES IN PCU. PT TRANSPORTED TO PCU VIA ICU BED, TRANSFERRED TO PCU BED VIA SLIDER SHEET. PT REMAINED ALERT AND ORIENTED, VSS.
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
[2023-09-03] VITALS (9 sets, daily range): BP systolic 95–132; BP diastolic 52–86
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
[2023-09-03 05:35] LABS: Hematocrit 41.6 % (37.0-53.0); Hemoglobin 13.6 g/dL (13.5-17.5)
--- NOTE | 2023-09-03 05:47 | NUR ---
UPDATE THIS RN INTO TO CHECK ON PT; PT NOW A&O X4 - ABLE TO STATE NAME, AND PLACE, EVENT, DAY/TIME. PT UNABLE TO RECALL RECENT EPISODE OF CONFUSION. PT FOLLOWING COMMANDS. DENIES ANY CONCERNS OR NEEDS. PT DENIES CP/PRESSURE, SOB, DIZZINESS, PALPITATIONS, N/V. DENIES DOSHI, NUMBNESS OR TINGLING. PT CONVERSING AT THIS TIME IN COHERENT SENTENCES. VBG RESULTS PENDING. CALL LIGHT IN REACH, WILL CONTINUE TO MONITOR THIS SHIFT AND UPDATE PROVIDER NEEDED.
[2023-09-03 05:57] LABS: Base Excess Venous 15.6 mmol/L; Bicarbonate Venous 36.8 mmol/L (24.0-30.0); PCO2 Venous 52.8 mmHg (38-42); pH Blood Venous 7.48 (7.34-7.37)
[2023-09-03 06:02] LABS: Albumin, Blood 2.9 g/dL (3.4-5.0); Anion Gap 2 mmol/L (6-16); Blood Urea Nitrogen 39 mg/dL (8-24); Bun/Creatinine Ratio 28.5 (12.0-20.0); CO2, Blood 41 mmol/L (21-32); Chloride, Blood 90 mmol/L (98-108); Creatinine, Blood 1.37 mg/dL (0.60-1.20); Glomerular Filtration Rate 52 (60-); Glucose, Blood 165 mg/dL (70-99); Magnesium, Blood 1.9 mg/dL (1.6-2.4); Phosphorus, Blood 4.8 mg/dL (2.5-4.9); Potassium, Blood 3.5 mmol/L (3.5-5.5); Sodium, Blood 133 mmol/L (136-145)
--- NOTE | 2023-09-03 07:43 | NUR ---
SHIFT SUMMARY PT NOW A&O X4 AGAIN, PT DENIES REMEMBERING EVENT OF CONFUSION HOWEVER STATES HE "REMEMBERS A VERY VIVID DREAM OF BEING A DINOSAUR IN A [employer] AND IF I ANSWERED QUESTIONS OR THEY FOUND INFORMATION ABOUT ME, THEY WERE GOING TO KILL ME. 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 PT DENIES HAVING EPISODES OF "CONFUSION OF ANYTHING". VBG RESULTS IN; SEE RESULTS. HOSPITALIST NOTIFIED; NO NEW ORDERS AT THIS TIME. OTHERWISE PT VSS; SEE VITALS. PT IN SR WITH RATE IN 60's, ALTHOUGH ON TELE OCCASSIONAL TOUCH INTO THE 130'S HOWEVER APPEARS TO BE SINUS. PT ASYMPTOMATIC AT THIS TIME, AND WAS EATING A SNACK. PT WITH 4, 400 MLS UOP THIS SHIFT FROM DIAZ. TOLERATING PO INTAKE. NEW ORDERS FOR FLUID RESTRICTION PER - SEE NURSE NOTIFY. PT REMAINS ON AIRVO WITH NO CHANGE IN SETTINGS; SPO2 94 - 96%. PT CURRENTLY RESTING, WILL UPDATE ONCOMING RN
[2023-09-03] MEDS ORDERED: AcetaZOLAMIDE Sodium 500 MG Vial IV SCH (09:00)
[2023-09-03] MEDS ORDERED: Amiodarone HCl 200 MG Tab PO SCH (09:00)
--- NOTE | 2023-09-03 18:36 | NUR ---
SHIFT SUMMARY: PT HAS BEEN A&Ox4 T/OUT SHIFT, NO ACUTE EPISODES OF CONFUSION NOTED, PT IS ABLE TO MAKE NEEDS KNOWN. PT REPORTS IMPROVEMENT TO DYSPNEA, O2 HAS BEEN TITRATED DOWN TO 4 L/MIN VIA NC, O2 SATS MAINTAINED >90%. PT DENIES CP, SR ON MONITOR W/RATE 60s-70s. DIURETICS ADMINISTERED PER ORDERS, SEE EMAR, PT TOLERATING WELL WITH HIGH VOLUME OF URINE OUTPUT, DIAZ CATHETER PATENT AND DRAINING TO GRAVITY. FLUID RESTRICTION ENFORCED THIS SHIFT, PO INTAKE AT 1010 ML FOR THE DAY W/TOTAL RESTRICTION TO BE 1500 ML. PT UP TO BEDSIDE RECLINER THIS AM AND SPENDS MAJORITY OF THE DAY THERE. AT THIS TIME, PT IS RESTING IN CHAIR W/CALL LIGHT IN REACH. WILL CONTINUE TO MONITOR AND TREAT ACCORDINGLY UNTIL CHANGE OF SHIFT.
--- NOTE | 2023-09-03 21:27 | NUR ---
ASSUMPTION OF CARE AFTER RECEIVING REPORT FROM CHASITY RN, THIS RN ASSUMED CARE AT APPROX 1915. PATIENT ALERT, SITTING UP IN CHAIR READING ON PERSONAL TABLET. IS ALERT AND ORIENTED X4. COOPERATIVE WITH CARE, ABLE TO COMMUNICATE NEEDS EFFECTIVELY. TELEMETRY SHOWING SINUS 60s. BP SOFT, SBP 100s. MAP >65. DENIES CHEST PAIN, PRESSURE. IS ON 4L VIA NASAL CANNULA, SATs >90%. RESPIRATIONS EVEN, UNLABORED. DENIES SHORTNESS OF BREATH. RT AT BEDSIDE THIS EVENING TO SET UP CPAP DEVICE FOR BASELINE USE WHILE SLEEPING. DIAZ CATHETER IN PLACE, PATENT. DRAINING YELLOW URINE TO GRAVITY. PATIENT WORKED WITH PHYSICAL, OCCUPATIONAL THERAPY TODAY. IS A STAND BY ASSIST IN ROOM WITH PIPER GIVENS. IS ABLE TO REPOSITION HIMSELF INDEPENDENTLY. PATIENT DENIED SHOWER THIS EVENING. CALL LIGHT IN REACH.
[2023-09-04] VITALS (7 sets, daily range): BP systolic 110–124; BP diastolic 50–69
[2023-09-04 03:43] LABS: Hematocrit 43.5 % (37.0-53.0); Hemoglobin 14.1 g/dL (13.5-17.5)
[2023-09-04 04:43] LABS: Albumin, Blood 3.1 g/dL (3.4-5.0); Blood Urea Nitrogen 35 mg/dL (8-24); Bun/Creatinine Ratio 32.4 (12.0-20.0); Calcium, Blood 9.8 mg/dL (8.5-10.1); Chloride, Blood 87 mmol/L (98-108); Creatinine, Blood 1.08 mg/dL (0.60-1.20); Glomerular Filtration Rate 70 (60-); Glucose, Blood 133 mg/dL (70-99); Phosphorus, Blood 4.8 mg/dL (2.5-4.9); Potassium, Blood 3.3 mmol/L (3.5-5.5); Sodium, Blood 133 mmol/L (136-145)
[2023-09-04 04:50] LABS: Anion Gap Unable to Calculate mmol/L (6-16); CO2, Blood >45 mmol/L (21-32)
--- NOTE | 2023-09-04 05:02 | NUR ---
SHIFT SUMMARY: NO ACUTE CHANGES SINCE ASSUMPTION OF CARE NOTE. PATIENT SLEPT THROUGHOUT SHIFT, IS EASILY AROUSABLE TO VERBAL STIMULI. TELEMETRY SHOWING SINUS 70s. BP STABLE, SBP 100s-120s. MAP >65. DENIES CHEST PAIN, PRESSURE. REMAINS ON 4L VIA NASAL CANNULA, SATs 88-94%. DECLINED USE OF CPAP DEVICE WHILE SLEEPING. THIS RN PROVIDED EDUCATION REGARDING USE OF DEVICE, IS CONTINUING TO DECLINE. RESPIRATIONS EVEN, UNLABORED. THIS RN NOTIFIED BY LAB WITH CRITICAL CO2 >45. MD NOTIFIED. NO NEW ORDERS RECEIVED. SEE CRITICAL VALUE DOCUMENTATION. DIAZ CATHETER IN PLACE, DRAINING LARGE AMOUNT OF LIGHT YELLOW URINE TO GRAVITY. NO BM THIS SHIFT. IS A STAND BY ASSIST WITH MOBILITY, IS ABLE TO REPOSITION HIMSELF INDEPENDENTLY IN BED. CALL LIGHT IN REACH. WILL REPORT TO ONCOMING RN.
[2023-09-04] MEDS ORDERED: Potassium Chloride 40 MEQ in NS 250 ML IV ONE (05:35)
--- NOTE | 2023-09-04 07:57 | NUR ---
AM NOTE Pt alert, oriented x4, calm and cooperative with care. Able to make needs known. Pt up in recliner, sba in room. Pt denies pain, chest pain/pressure, sob, nausea, dizziness and numb/tingling. Pt tele sinus 60-70's, bp stable. Edema noted to ble 2-3+, trace edema noted in hands. Spo2 >90% on 4l o2 via nc, breathing even and unlabored, ls clear, bases dim with crackles noted. Abd distended, soft, nontender +bt noted. Ble red/rash noted. Other vss. Will continue to monitor.
[2023-09-04] MEDS ORDERED: AcetaZOLAMIDE Sodium 500 MG Vial IV SCH (09:00)
--- NOTE | 2023-09-04 12:27 | NUR ---
Pt questioning fluid restriction, educated pt on fluid restriction. Will continue to monitor.
--- NOTE | 2023-09-04 18:32 | NUR ---
Shift Summary Pt has had 3500ml out during shift. Up in chair t/o shift. Vss. No other acute changes noted. Will continue to monitor.
[2023-09-04] MEDS ORDERED: Sacubitril/Valsartan 24 MG-26 MG Tab PO SCH (21:00)
--- NOTE | 2023-09-05 00:17 | NUR ---
ASSUMPTION OF CARE: AFTER RECEIVING REPORT FROM FRAN HAINES, THIS RN ASSUMED CARE AT APPROX 1915. DURING INITIAL ENCOUNTER, PATIENT ALERT, SITTING IN CHAIR READING ON PERSONAL TABLET. IS ALERT AND ORIENTED X4. IS [place], ABLE TO COMMUNICATE NEEDS EFFECTIVELY. TELEMETRY SHOWING SINUS 60s-70s. BP STABLE. DENIES CHEST PAIN, PRESSURE. IS ON 4L VIA NASAL CANNULA, SATs >90%. RESPIRATIONS EVEN, UNLABORED. DENIES SHORTNESS OF BREATH. PRIOR DIAGNOSIS OF MARCOS, USES CPAP AT BASELINE. PATIENT DECLINING USE OF DEVICE WHILE IN HOSPITAL, THIS RN AND RT PROVIDED EDUCATION REGARDING DEVICE. PATIENT CONTINUING TO DECLINE, RT COMPLETED REFUSAL FORM. PATIENT SIGNED, LOCATED IN CHART. DIAZ CATHETER IN PLACE FOR STRICT I/Os, DRAINING LIGHT YELLOW URINE TO GRAVITY. IS A STAND BY ASSIST WITH MOBILITY. REPOSITIONS HIMSELF INDEPENDENTLY. CALL LIGHT IN REACH.
[2023-09-05 03:45] VITALS: BP 120/59
[2023-09-05 04:04] LABS: Hematocrit 43.5 % (37.0-53.0)
[2023-09-05 04:21] LABS: Anion Gap 1 mmol/L (6-16); Blood Urea Nitrogen 26 mg/dL (8-24); Bun/Creatinine Ratio 28.1 (12.0-20.0); CO2, Blood 41 mmol/L (21-32); Chloride, Blood 93 mmol/L (98-108); Creatinine, Blood 0.93 mg/dL (0.60-1.20); Glomerular Filtration Rate 84 (60-); Glucose, Blood 169 mg/dL (70-99); Phosphorus, Blood 4.2 mg/dL (2.5-4.9); Potassium, Blood 3.9 mmol/L (3.5-5.5); Sodium, Blood 135 mmol/L (136-145)
--- NOTE | 2023-09-05 04:58 | NUR ---
SHIFT SUMMARY: NO ACUTE CHANGES SINCE ASSUMPTION OF CARE NOTE. TELEMETRY SHOWING SINUS 60s. BP STABLE, SBP 110s-120s. MAP >65. REMAINS ON 4L VIA NASAL CANNULA, SATs 88-93%. RESPIRATIONS EVEN, UNLABORED. DIAZ CATHETER PATENT, DRAINING LIGHT YELLOW URINE TO GRAVITY. NO BM THIS SHIFT. REPOSITIONING HIMSELF INDEPENDENTLY IN BED. CALL LIGHT IN REACH. WILL REPORT TO ONCOMING RN.
[2023-09-05 08:10] VITALS: BP 121/59
[2023-09-05] MEDS ORDERED: AcetaZOLAMIDE Sodium 500 MG Vial IV SCH (09:00)
[2023-09-05 12:01] VITALS: BP 123/63
--- NOTE | 2023-09-05 14:02 | NUR ---
Spiritual Care Visit. Pt. is sitting up in a chair and welcomed my visit. Pt. is engaged and aware and displays evidence of progress in his recovery. Pt. is unsettled about his water restriction. Listen with empathy and a calming presence. Considered matters of his community and his love for [place] in [place]. Prayed with Pt. Pt. verbalized gratitude for the spiritual care visit.
[2023-09-05 16:18] VITALS: BP 117/57
--- NOTE | 2023-09-05 18:47 | NUR ---
SHIFT SUMMARY PT ALERT, ORIENTED X4; CALM AND COOPERATIVE WITH CARE. ABLE TO MAKE NEEDS KNOWN. PT EXPRESSES FRUSTRATION ON REGARDING FLUID RESTRICTION, EDUCATED PATIENT TWICE REGARDING THE NEED. PT UP WITH 1 PERSON ASSIST. PT DENIES PAIN, CHEST PAIN/PRESSURE, SOB, NAUSEA, DIZZINESS AND NUMB/TINGLING. TELE SINUS 60'S T/O SHIFT, BP STABLE, EDEMA CONTINUES TO IMPROVE FROM PREVIOUS SHIFT. PT HAS DIAZ FOR STRICT I&O APPROX 2300ML OUT DURING SHIFT, PATENT AND DRAINING. SPO2 >90% ON 3-4L O2 VIA NC, BREATHING EVEN AND UNLABORED. ABD SOFT, NONTRENDER, +BT NOTED T/O. OTHER VSS. NO OTHER ACUTE CHANGES NOTED. WILL CONTINUE TO MONITOR.
[2023-09-05 21:11] VITALS: BP 138/72
[2023-09-05 23:16] VITALS: BP 138/64
[2023-09-06 03:52] VITALS: BP 127/63
[2023-09-06 04:10] LABS: Hematocrit 45.1 % (37.0-53.0); Hemoglobin 14.4 g/dL (13.5-17.5)
[2023-09-06 04:36] LABS: Anion Gap 2 mmol/L (6-16); Blood Urea Nitrogen 26 mg/dL (8-24); Bun/Creatinine Ratio 28.1 (12.0-20.0); CO2, Blood 38 mmol/L (21-32); Calcium, Blood 9.9 mg/dL (8.5-10.1); Chloride, Blood 97 mmol/L (98-108); Creatinine, Blood 0.93 mg/dL (0.60-1.20); Glomerular Filtration Rate 84 (60-); Glucose, Blood 251 mg/dL (70-99); Phosphorus, Blood 3.9 mg/dL (2.5-4.9); Potassium, Blood 4.2 mmol/L (3.5-5.5); Sodium, Blood 137 mmol/L (136-145)
--- NOTE | 2023-09-06 06:03 | NUR ---
SHIFT SUMMARY PATIENT ALERT AND ORIENTED X4, STAND BY ASSIST FOR AMBULATION DUE TO WEAKNESS. PATIENT DENIED HAVING ANY PAIN OR SHORTNESS OF BREATH. PATIENT REMAINS ON 3 LITERS O2 VIA NASAL CANULA, SPO2>90%. VITAL SIGNS STABLE, SINUS RHYTHM IN THE 60'S ON TELE WITH NO EVENTS. NO ACUTE ISSUES NOTED OVERNIGHT. WILL CONTINUE TO MONITOR. CALL LIGHT WITHIN REACH.
[2023-09-06 08:29] VITALS: BP 117/52
[2023-09-06] MEDS ORDERED: AcetaZOLAMIDE 250 MG Tab PO SCH (09:00)
[2023-09-06] MEDS ORDERED: Bumetanide 1 MG Tab PO SCH (09:00)
--- NOTE | 2023-09-06 09:47 | NUR ---
AM NOTE Pt alert, oriented x4; forgetful at times, calm and cooperative with care. Pt up in chair for majority of shift, 1 person assist. Pt denies pain, chest pain/pressure, sob, nausea, dizziness and numb/tingling. Tele sinus 60's, bp stable. Spo2 >90% on 3l o2 via nc, titrated down to 2l, continues to hear small amount of fine crackles to lower lobes. Abd soft, nontender, +bt t/o, no BM recently, MD notified, will enter orders. Edema continues to improve 2+ ble, trace edema to bue. Other vss. No other acute changes noted. Will continue to monitor.
[2023-09-06] MEDS ORDERED: Docusate Sodium/Senna 1 Tab PO SCH (10:05)
[2023-09-06 11:36] VITALS: BP 109/55
--- NOTE | 2023-09-06 11:48 | NUR ---
Pt sucessfull with bladder training, jaramillo catheter removed. Will continue to monitor.
[2023-09-06] MEDS ORDERED: ACET250 PO (12:54)
[2023-09-06] MEDS ORDERED: Amiodarone HCl200 MG PO (12:55)
[2023-09-06] MEDS ORDERED: BUME2 PO (12:56)
[2023-09-06] MEDS ORDERED: Calcium Acetat667 MG PO (12:56)
[2023-09-06] MEDS ORDERED: DOCUZEN 8.6-501 EACH PO (12:57)
[2023-09-06] MEDS ORDERED: METO25ER PO (12:58)
[2023-09-06] MEDS ORDERED: MICONAZOLE NITR85 GM TOP (13:00)
[2023-09-06] MEDS ORDERED: POTCHL20ER PO (13:01)
[2023-09-06] MEDS ORDERED: ENTRESTO 24 MG1 EACH PO (13:02)
[2023-09-06] MEDS ORDERED: XARELTO20 MG PO (13:02)
[2023-09-06] MEDS ORDERED: SPIR25 PO (13:03)
--- NOTE | 2023-09-06 15:45 | NUR ---
Discharge Summary Pt voided several times after jaramillo removed. Vss. Pt discharged to SNF at approx 1538 via wheelchair van. Report given to Kathrin at [facility].
== END 2023-09-06 15:38 | DRG 291 ==
LOC: ER 11:17 → PCU 14:45 → ICUE 14:45 → PCU 16:15 → ICUE 08-31 11:56 → PCU 09-02 22:11
PROVIDERS: Emergency Medicine; Internal Medicine; Internal Medicine Cardiovascular Disease; Internal Medicine Critical Care Medicine; Internal Medicine Nephrology; Student in an Organized Health Care Education/Training Program; ADMIT Family Medicine
PROC: 5A2204Z Restoration of Cardiac Rhythm, Single (ICD-10-PCS; principal; 2023-08-27)
PROC: 5A09557 Assistance with Respiratory Ventilation, Greater than 96 Consecutive Hours, Continuous Positive Airway Pressure (ICD-10-PCS; 2023-08-27)
PROC: 0W9B3ZZ Drainage of Left Pleural Cavity, Percutaneous Approach (ICD-10-PCS; 2023-08-27)
DX: I13.0 Hypertensive heart and chronic kidney disease with heart failure and stage 1 through stage 4 chronic kidney disease, or unspecified chronic kidney disease (principal); I50.21 Acute systolic (congestive) heart failure; J96.01 Acute respiratory failure with hypoxia; Q21.11 Secundum atrial septal defect; N17.9 Acute kidney failure, unspecified; J90 Pleural effusion, not elsewhere classified; C91.10 Chronic lymphocytic leukemia of B-cell type not having achieved remission; E87.1 Hypo-osmolality and hyponatremia; I48.92 Unspecified atrial flutter; Z68.42 Body mass index [BMI] 45.0-49.9, adult; I47.10 Supraventricular tachycardia, unspecified; E87.3 Alkalosis; Z66 Do not resuscitate; G47.33 Obstructive sleep apnea (adult) (pediatric); I27.20 Pulmonary hypertension, unspecified; Z96.652 Presence of left artificial knee joint; E88.09 Other disorders of plasma-protein metabolism, not elsewhere classified; D63.1 Anemia in chronic kidney disease; E83.39 Other disorders of phosphorus metabolism; N18.9 Chronic kidney disease, unspecified; R31.9 Hematuria, unspecified; E66.01 Morbid (severe) obesity due to excess calories; I42.9 Cardiomyopathy, unspecified; E87.5 Hyperkalemia; Z79.4 Long term (current) use of insulin; Z79.890 Hormone replacement therapy; Z79.899 Other long term (current) drug therapy; Z11.52 Encounter for screening for COVID-19; E87.6 Hypokalemia; D69.6 Thrombocytopenia, unspecified; Z91.148 Patient's other noncompliance with medication regimen for other reason; Z98.890 Other specified postprocedural states; I48.0 Paroxysmal atrial fibrillation; Z88.1 Allergy status to other antibiotic agents; Z88.8 Allergy status to other drugs, medicaments and biological substances
CPT/HCPCS: 0241U; 32555; 36415; 36600; 51702; 51798; 71045; 76770; 80048; 80053; 80069; 81001; 82042; 82248; 82803; 82945; 82947; 83605; 83615; 83735; 83880; 83935; 84100; 84145; 84155; 84157; 84443; 84484; 85014; 85018; 85025; 85520; 85610; 85730; 87040; 88108; 88305; 88341; 88342; 89051; 92960; 93005; 93010; 93312; 93325; 94660; 94760; 94762; 96374-59; 96375-59; 97110; 97116; 97163; 97165; 97530; 97535; 99285-25; A9270; C8929; C9113; J0153; J0282; J0456; J0696; J1120; J1644; J1650; J1815; J1940; J2250; J2405; J2704; J3475; J3480; J7030; J7050; J7060; Q9957

== ENCOUNTER → 2023-09-24 | Outpatient (CLI) | payer MEDICARE ==
[~2023-09-24] MED LIST changes: +ACET250 PO; +AMIODARONE HCL100 M3 PO; +AMIODARONE HCL200 MG PO; +Amiodarone HCl200 MG PO; +BRUKINSA80 MG PO; +BUME2 PO; +BUPR150ER PO; +Calcium Acetat667 MG PO; +DOCUZEN 8.6-501 EACH PO; +ENTRESTO 24 MG1 EAC3 PO; +ENTRESTO 24 MG1 EACH PO; +METO25ER PO; +MICONAZOLE NITR85 GM TOP; +OZEMPIC0.25 MG/02 SC; +POTA10T PO; +POTCHL20ER PO; +SPIR25 PO; +SYNTHROID25 M12 PO; +XARELTO20 MG PO; +ZOCOR20 MG PO
== END | disposition home or self-care (01) ==
LOC: LAB SHORT 11:57 → LAB 11:57
DX: D04.4 Carcinoma in situ of skin of scalp and neck (principal)
CPT/HCPCS: 88305

== ENCOUNTER → 2024-03-07 | Outpatient (CLI) | payer MEDICARE ==
[2024-03-07 14:59] LABS: Creatinine Urine 27.9 mg/dL (27.00-270.00); Microalbumin, Urine Quant. 16.8 mg/L (0.000-20.000); Protein, Urine Quantitative 9.6 mg/dL (0.0-11.9)
== END | disposition home or self-care (01) ==
LOC: LAB SHORT 09:38 → LAB 09:38
PROVIDERS: Internal Medicine Nephrology
DX: N18.30 Chronic kidney disease, stage 3 unspecified (principal); D63.1 Anemia in chronic kidney disease; N25.81 Secondary hyperparathyroidism of renal origin; E55.9 Vitamin D deficiency, unspecified; E78.00 Pure hypercholesterolemia, unspecified; R76.9 Abnormal immunological finding in serum, unspecified; R94.5 Abnormal results of liver function studies; R94.6 Abnormal results of thyroid function studies
CPT/HCPCS: 81050; 82043; 82570; 84156